=== PATIENT | female | born 1985 | race Hispanic/Latino ===

== ENCOUNTER 2019-04-04 09:28 | Outpatient (CLI) | payer MEDICARE, MEDICAID ==
[2019-04-04 10:22] LABS: Hematocrit 41.6 % (30.3-42.9); Hemoglobin 14.1 gm/dl (10.1-14.3); Mean Corpuscular HGB Conc 34 % (30-34); Mean Corpuscular Volume 97 fl (79-97); Platelet Count 223 K/mm3 (140-440); Red Blood Count 4.29 M/mm3 (3.65-5.03); Red Cell Distribution Width 12.8 % (13.2-15.2)
[2019-04-04 10:55] LABS: Alanine Aminotransferase 16 units/L (7-56); Albumin 4.3 g/dL (3.9-5); BUN/Creatinine Ratio 17; Blood Urea Nitrogen 10 mg/dL (7-17); Calcium 9.2 mg/dL (8.4-10.2); Chol/HDL Ratio 2.37 %; HDL Cholesterol 62 mg/dL (40-59); Hemolysis Index 5; LDL Cholesterol,Direct 77 mg/dL (50-130)
[2019-04-04] MEDS ORDERED: ALBUTEROL 2.5 MG/3 ML NEBU IH ONE (11:34)
[2019-04-10 22:00] LABS: ANA Screen, IFA Positive (Negative)
--- NOTE | 2019-04-15 06:43 | Pulmonary Function Test ---
SPIROMETRY: FVC 2.5 liters, which is 77% of the predicted. FEV1 is 2.09 liters, which is 77% of the predicted. FEV1/FVC ratio is 84. FLOW VOLUME LOOP: FEF 25-75% is 2.13 liters per second, which is 69% of the predicted. MVV is 70% of the predicted. LUNG VOLUMES: TLC 3.75 liters, which is 85% of the predicted. Slow vital capacity (SVC) 2.46 liters, which is 85% of predicted. ERV is 41% of the predicted. DLCO 116% of the predicted. IMPRESSION: Normal pulmonary function test. JOB# [id number] JOSE/MESHA
== END 2019-04-04 09:29 | disposition home or self-care (01) ==
LOC: PF 09:28
PROVIDERS: ATTEND Internal Medicine
DX: J45.909 Unspecified asthma, uncomplicated (principal); K21.9 Gastro-esophageal reflux disease without esophagitis; G43.909 Migraine, unspecified, not intractable, without status migrainosus; E84.9 Cystic fibrosis, unspecified; D84.9 Immunodeficiency, unspecified
CPT/HCPCS: 36415; 80053; 80061; 82784; 82785; 84436; 84443; 85027; 86038; 86431; 93005; 93010; 94060; 94640; 94726; 94729

== ENCOUNTER 2019-05-19 23:22 | Emergency (ER) | payer MEDICARE ==
[2019-05-20 00:11] LABS: Basophils % (Auto) 0.6 % (0.0-1.8); Eosinophils # (Auto) 0.3 K/mm3 (0.0-0.4); Eosinophils % (Auto) 3.6 % (0.0-4.3); Hematocrit 44.2 % (30.3-42.9); Lymphocytes # (Auto) 1.9 K/mm3 (1.2-5.4); Lymphocytes % (Auto) 26.5 % (13.4-35.0); Mean Corpuscular HGB Conc 34 % (30-34); Mean Corpuscular Volume 97 fl (79-97); Monocytes # (Auto) 0.6 K/mm3 (0.0-0.8); Platelet Count 212 K/mm3 (140-440); Red Blood Count 4.58 M/mm3 (3.65-5.03); Red Cell Distribution Width 14.3 % (13.2-15.2)
[2019-05-20 00:23] LABS: BUN/Creatinine Ratio 7; Blood Urea Nitrogen 5 mg/dL (7-17); Calcium 8.9 mg/dL (8.4-10.2); Hemolysis Index 24
--- NOTE | 2019-05-20 00:48 | XRay Report ---
CHEST 1 VIEW INDICATION: MAIN: Chest Pain Coughing up blood, chestpain, and NATHAN X 3 days. COMPARISON: FINDINGS: SUPPORT DEVICES: None. HEART / MEDIASTINUM: No significant abnormality. LUNGS / PLEURA: No significant pulmonary or pleural abnormality. No pneumothorax. ADDITIONAL FINDINGS: IMPRESSION: 1. No acute cardiopulmonary disease Signer Name: Kenan Rocha MD Signed: 05/20/2019 12:44 AM Workstation Name: [id number]
[2019-05-20] MEDS ORDERED: ONDANSETRON 4 MG/2 ML INJ IV ONE (01:14)
[2019-05-20] MEDS ORDERED: fentaNYL 100 MCG/2 ML INJ IV ONE (01:14)
--- NOTE | 2019-05-20 01:23 | Emergency Department Report ---
HPI - General Chief Complaint: Dyspnea/Respdistress Time Seen by Provider: 05/20/19 01:05 - [facility] HPI: Room 26 The patient is a 33-year-old female present with a chief complaint of cough and hemoptysis. Patient states she has a history of cystic fibrosis and coughs frequently. The patient states 3 days ago she noticed specks of blood mixed in with her yellow-green sputum. Today the patient states she she noticed more blood after coughing. Patient denies fever but states she has occasional rhinorrhea whenever she vomits. Patient complains of pain in her back and chest. Patient states she completed a course of antibiotics 2 weeks ago for bronchitis ED Past Medical Hx - Past Medical History Previous Medical History?: Yes Hx Seizures: Yes Additional medical history: Crohn's disease, Cystic Fibrosis, LUPUS. - Surgical History Past Surgical History?: No - Family History Family history: no significant - Social History Smoking Status: Current Every Day Smoker (3 cigarettes daily) Substance Use Type: Alcohol (Moderate), Marijuana - Medications Home Medications: Home Medications Medication Instructions Recorded Confirmed Last Taken Type HYDROcodone/APAP 5-325 [[place] 1 - 2 each PO Q6HR PRN #10 tablet 05/20/19 Unknown Rx 5/325] Promethazine [Phenergan] 25 mg PO Q6HR PRN #20 tab 05/20/19 Unknown Rx Promethazine [Phenergan] 25 mg [place] Q6HR PRN #5 supp.rect 05/20/19 Unknown Rx levoFLOXacin [Levaquin] 750 mg PO QDAY #10 tablet 05/20/19 Unknown Rx ED Review of Systems ROS: Stated complaint: CYSTIC FIBROSIS COMPLICATION Other details as noted in HPI Constitutional: denies: fever Eyes: denies: eye pain ENT: denies: throat pain Respiratory: cough Endocrine: no symptoms reported Gastrointestinal: nausea, vomiting Musculoskeletal: back pain Physical Exam - Physical Exam Vital Signs: Vital Signs 05/19/19 05/19/19 23:30 23:31 Temperature 97.8 F 97.8 F Pulse Rate 80 Respiratory 20 Rate Blood Pressure 162/103 O2 Sat by Pulse 100 Oximetry Physical Exam: GENERAL: The patient is well-developed well-nourished female lying on stretcher not appearing to be in acute distress. [] HEENT: Normocephalic. Atraumatic. Extraocular motions are intact. Patient has moist mucous membranes. NECK: Supple. Trachea midline CHEST/LUNGS: Clear to auscultation. There is no respiratory distress noted. HEART/CARDIOVASCULAR: Regular. There is no tachycardia. There is no gallop rub or murmur. ABDOMEN: Abdomen is soft, nontender. Patient has normal bowel sounds. There is no abdominal distention. SKIN: There is no rash. There is no edema. There is no diaphoresis. NEUROLOGICAL: Patient is alert and oriented. Patient is cooperative. Normal speech. GCS 15 MUSCULOSKELETAL: There is no evidence of acute injury. ED Course Vital Signs 05/19/19 05/19/19 23:30 23:31 Temperature 97.8 F 97.8 F Pulse Rate 80 Respiratory 20 Rate Blood Pressure 162/103 O2 Sat by Pulse 100 Oximetry ED Medical Decision Making - Lab Data Result diagrams: 05/19/19 23:43 05/19/19 23:43 Laboratory Tests 05/19/19 05/19/19 05/20/19 23:43 23:43 01:18 WBC 7.0 RBC 4.58 Hgb 15.0 H Hct 44.2 H MCV 97 MCH 33 H MCHC 34 RDW 14.3 Plt Count 212 Lymph % (Auto) 26.5 [place] % (Auto) 8.0 H Eos % (Auto) 3.6 Baso % (Auto) 0.6 Lymph # 1.9 [place] # 0.6 Eos # 0.3 Baso # 0.0 Seg Neutrophils % 61.3 Seg Neutrophils # 4.3 D-Dimer 152.63 Sodium 138 Potassium 4.2 Chloride 104.1 Carbon Dioxide 19 L Anion Gap 19 BUN 5 L Creatinine 0.7 Estimated GFR > 60 BUN/Creatinine Ratio 7 Glucose 101 H Calcium 8.9 Troponin T < 0.010 - EKG Data -: EKG Interpreted by Me EKG shows normal: sinus rhythm Rate: normal - EKG Data When compared to previous EKG there are: previous EKG unavailable Interpretation: other (No ischemic changes seen) - Radiology Data Radiology results: report reviewed (Chest x-ray), image reviewed (Chest x-ray) interpreted by me: Chest x-ray-no focal infiltrates, no pneumothorax [facility] [address] [place] [address] XRay Report Signed Patient: JAMES PUGH MR#: [id number] : 1985 Acct:[id number] Age/Sex: 33 / F ADM Date: 05/19/19 Loc: ED Attending Dr: Ordering Physician: TASIA GRUBBS MD Date of Service: 05/19/19 Procedure(s): XR chest 1V ap Accession Number(s): [id number] cc: ED MD ROMIE Fluoro Time In Minutes: CHEST 1 VIEW INDICATION: MAIN: Chest Pain Coughing up blood, chestpain, and NATHAN X 3 days. COMPARISON: FINDINGS: SUPPORT DEVICES: None. HEART / MEDIASTINUM: No significant abnormality. LUNGS / PLEURA: No significant pulmonary or pleural abnormality. No pneumothorax. ADDITIONAL FINDINGS: IMPRESSION: 1. No acute cardiopulmonary disease Signer Name: Kenan Rocha MD Signed: 05/20/2019 12:44 AM Workstation Name: [email or web address] Transcribed By: REMINGTON Dictated By: Kenan flannery MD Electronically Authenticated By: Kenan Rocha MD Signed Date/Time: 05/20/1944 DD/ TD/TT: - Differential Diagnosis Bronchitis, pneumonia, PE, tuberculosis Critical care attestation.: If time is entered above; I have spent that time in minutes in the direct care of this critically ill patient, excluding procedure time. ED Disposition Clinical Impression: Acute bronchitis Disposition: - TO HOME OR SELFCARE Is pt being admited?: No Does the pt Need Aspirin: No Condition: Stable Instructions: Acute Bronchitis (ED) Prescriptions: levoFLOXacin [Levaquin] 750 mg PO QDAY #10 tablet HYDROcodone/APAP 5-325 [[place] 5/325] 1 - 2 each PO Q6HR PRN #10 tablet PRN Reason: Pain Promethazine [Phenergan] 25 mg PO Q6HR PRN #20 tab PRN Reason: Nausea Promethazine [Phenergan] 25 mg RI Q6HR PRN #5 supp.rect PRN Reason: Vomiting Referrals: PRIMARY CARE, [Referring] - 3-5 Days FREEMAN CRAWFORD MD [Staff Physician] - [facility] Time of Disposition: 01:55
[2019-05-20 02:32] VITALS: BP 155/83
== END 2019-05-20 02:32 | disposition home or self-care (01) ==
LOC: ED 23:22
DX: J20.9 Acute bronchitis, unspecified (principal); F17.200 Nicotine dependence, unspecified, uncomplicated; F12.90 Cannabis use, unspecified, uncomplicated; Z88.6 Allergy status to analgesic agent; Z91.041 Radiographic dye allergy status; Z79.899 Other long term (current) drug therapy; Z86.69 Personal history of other diseases of the nervous system and sense organs
CPT/HCPCS: 36415; 71045; 80048; 84484; 84703; 85025; 85379; 93005; 93010; 96374; 96375; 99284; J2405; J3010

== ENCOUNTER 2019-06-18 16:47 | Inpatient (IN) | payer MEDICARE ==
--- NOTE | 2019-06-18 17:08 | Event Note ---
ED Screening Note Date of service: 06/18/19 Time: 17:05 ED Screening Note: 33 y/o female comes in for worsening SOB. History of Lupus, CF. Was seen here on 06/14/19 for same complaint. Ox 92 on RA 97% on 2 liters. This initial assessment/diagnostic orders/clinical plan/treatment(s) is/are sub ject to change based on patients health status, clinical progression and re- assessment by fellow clinical providers in the ED. Further treatment and workup at subsequent clinical providers discretion. Patient/guardian urged not to elope from the ED as their condition may be serious if not clinically assessed and managed. Initial orders include: CXR, CBC, CMP COVID-19 orders.
[2019-06-18 17:33] LABS: Basophils % (Auto) 0.7 % (0.0-1.8); Eosinophils # (Auto) 0.1 K/mm3 (0.0-0.4); Eosinophils % (Auto) 2.2 % (0.0-4.3); Lymphocytes % (Auto) 18.9 % (13.4-35.0); Mean Corpuscular HGB Conc 34 % (30-34); Mean Corpuscular Volume 96 fl (79-97); Monocytes # (Auto) 0.4 K/mm3 (0.0-0.8); Monocytes % (Auto) 7.9 % (0.0-7.3); Platelet Count 177 K/mm3 (140-440); Red Blood Count 3.97 M/mm3 (3.65-5.03)
[2019-06-18 18:00] LABS: C-Reactive Protein 0.4 mg/dL (0.00-1.30)
[2019-06-18 18:10] LABS: Alanine Aminotransferase 17 units/L (7-56); Albumin 4.5 g/dL (3.9-5); BUN/Creatinine Ratio 10; Blood Urea Nitrogen 7 mg/dL (7-17); Calcium 9.1 mg/dL (8.4-10.2); Hemolysis Index 10
--- NOTE | 2019-06-18 18:19 | Emergency Department Report ---
HPI - General Chief Complaint: Dyspnea/Respdistress Time Seen by Provider: 06/18/19 17:04 - HPI HPI: 33-year-old female presents to the emergency department from home with a complaint of continued shortness of breath, productive cough, back and rib pain. The patient is well-known to me as I saw her 4 days ago on 06/14/2019. She is known to be Covid positive and found out on 06/14/2019. 5 to 6 days prior to that she was in [facility] at a facility with similar symptoms and was tested at that time. She has a past medical history of cystic fibrosis, lupus, Crohn's disease, epilepsy. The patient was discharged from our facility a few days ago, however the patient claims that she did not receive the prescriptions for the albuterol inhaler or the Plaquenil. Her structurer is Dr. Woo. Patient was tested for and found negative for both influenza and rapid strep during her last visit. ED Past Medical Hx - Past Medical History Previous Medical History?: Yes Hx Headaches / Migraines: Yes Hx Seizures: Yes Additional medical history: Crohn's disease, Cystic Fibrosis, LUPUS.MRSA. - Surgical History Past Surgical History?: Yes Hx Cholecystectomy: Yes Hx Appendectomy: Yes Additional Surgical History: Left hip. Sinus. Bilateral breast reduction. - Social History Smoking Status: Current Every Day Smoker Substance Use Type: None - Medications Home Medications: Home Medications Medication Instructions Recorded Confirmed Last Taken Type HYDROcodone/APAP 5-325 [[place] 1 - 2 each PO Q6HR PRN #10 tablet 05/20/19 Unknown Rx 5/325] Promethazine [Phenergan] 25 mg PO Q6HR PRN #20 tab 05/20/19 Unknown Rx Promethazine [Phenergan] 25 mg [place] Q6HR PRN #5 supp.rect 05/20/19 Unknown Rx levoFLOXacin [Levaquin] 750 mg PO QDAY #10 tablet 05/20/19 Unknown Rx Albuterol INH(or & Nicu Only) 2 puff IH QID PRN #1 inhalation 05/26/19 Unknown Rx [ProAir HFA Inhaler] predniSONE [Deltasone] 20 mg PO QDAY #5 tab 05/26/19 Unknown Rx traMADoL [Ultram] 50 mg PO Q6HR PRN #12 tablet 05/26/19 Unknown Rx Albuterol INH(or & Nicu Only) 2 puff IH QID PRN #1 inh 06/14/19 Unknown Rx [ProAir HFA Inhaler] Hydroxychloroquine [Plaquenil] 200 mg PO QDAY #12 tablet 06/14/19 Unknown Rx Ondansetron [Zofran Odt] 4 mg PO Q8HR PRN #12 tab.rapdis 06/14/19 Unknown Rx ED Review of Systems ROS: Stated complaint: POSS COVID/SOB/CP Other details as noted in HPI Comment: All other systems reviewed and negative Constitutional: chills, fever (intermittent) Eyes: denies: eye pain, vision change ENT: throat pain. denies: ear pain Respiratory: cough, shortness of breath Cardiovascular: denies: palpitations, edema Gastrointestinal: denies: abdominal pain, vomiting Genitourinary: denies: dysuria, discharge Musculoskeletal: back pain, myalgia Skin: denies: rash, lesions Neurological: denies: weakness, numbness Physical Exam - Physical Exam Vital Signs: Vital Signs 06/18/19 06/18/19 17:02 17:03 Temperature 98.1 F Pulse Rate 96 H Respiratory 26 H Rate Blood Pressure 156/98 [Right] O2 Sat by Pulse 97 92 Oximetry Physical Exam: GENERAL: The patient is well-developed well-nourished. HENT: Normocephalic. Atraumatic. Patient has moist mucous membranes. EYES: Extraocular motions are intact. NECK: Supple. Trachea is midline. CHEST/LUNGS: Clear to auscultation. There is some tachypnea but no accessory m uscle use. A productive sounding cough heard during examination. There is no respiratory distress noted. HEART/CARDIOVASCULAR: Regular. There is no tachycardia. There is no murmur. ABDOMEN: Abdomen is soft, nontender. Patient has normal bowel sounds. SKIN: Skin is warm and dry. NEURO: The patient is awake, alert, and oriented. The patient is cooperative. The patient has no focal neurologic deficits. Normal speech. MUSCULOSKELETAL: There is no tenderness or deformity. There is no evidence of acute injury. ED Course Vital Signs 06/18/19 06/18/19 17:02 17:03 Temperature 98.1 F Pulse Rate 96 H Respiratory 26 H Rate Blood Pressure 156/98 [Right] O2 Sat by Pulse 97 92 Oximetry ED Medical Decision Making - Lab Data Result diagrams: 06/18/19 17:18 06/18/19 17:18 - Radiology Data Radiology results: image reviewed interpreted by me: Chest x-ray does not show any acute process. There are no pleural effusions, obvious pneumonia and there is no pneumothorax. - Medical Decision Making This patient returns to the emergency department with worsening shortness of breath and cough, as well as some body aches. She is known Covid 19+ and has the comorbidities of cystic fibrosis and lupus. The last time the patient was here we were able to discharge home as she did not have any signs of hypoxia. However, this time the patient is 92% on room air through triage. Placed on nasal cannula. Chest x-ray does not show any signs of pneumonia. Patient's labs are mostly unremarkable except for some signs of mild dehydration. Given some gentle IV fluid resuscitation. Patient will be admitted to the hospital for further evaluation and treatment and was accepted for admission by the hospitalist, Dr. Osorio. Critical Care Time: No Critical care attestation.: If time is entered above; I have spent that time in minutes in the direct care of this critically ill patient, excluding procedure time. ED Disposition Clinical Impression: COVID-19 virus infection, History of cystic fibrosis, Hypoxia Hypertension Qualifiers: Hypertension type: essential hypertension Qualified Code(s): I10 - Essential (primary) hypertension Dyspnea Qualifiers: Dyspnea type: shortness of breath Qualified Code(s): R06.02 - Shortness of breath; R06.00 - Dyspnea, unspecified; R06.01 - Orthopnea Disposition: OP ADMIT IP TO THIS HOSP Is pt being admited?: Yes Condition: Fair Time of Disposition: 18:35
[2019-06-18] MEDS ORDERED: HYDROmorphone 1 MG/1 ML INJ IV ONE (18:26)
--- NOTE | 2019-06-18 18:28 | XRay Report ---
CHEST 1 VIEW INDICATION: SOB. COMPARISON: 06/14/2019 FINDINGS: Support devices: None. Heart: Normal. Lungs/Pleura: No acute pulmonary or pleural findings. IMPRESSION: 1. No significant change. Signer Name: Jf Traylor MD Signed: 06/18/2019 6:24 PM Workstation Name: [id number]
[2019-06-18] MEDS ORDERED: SODIUM CHLORIDE 0.9% 1000 ML 1,000 ML IV ONE (18:38)
[2019-06-18] MEDS ORDERED: PROMETHAZINE 25 MG RECT SUPP PR PRN (21:56)
[2019-06-18] MEDS ORDERED: ALBUTEROL 8.5 GM INHALATION IH PRN (21:56)
[2019-06-18] MEDS ORDERED: METOCLOPRAMIDE 10 MG/2 ML INJ IV PRN (21:59)
[2019-06-18] MEDS ORDERED: ACETAMINOPHEN 325 MG TAB PO PRN (21:59)
[2019-06-18] MEDS ORDERED: ONDANSETRON 4 MG/2 ML INJ IV PRN (21:59)
--- NOTE | 2019-06-18 22:09 | History and Physical Report ---
History of Present Illness Date of examination: 06/18/19 Date of admission: 06/18/19 18:35 Chief complaint: Cough and SOB for 1 week History of present illness: 33-year-old female presents to the emergency department from home with a complaint of continued shortness of breath, productive cough, back and rib pain. The patient was seen 4 days ago on 06/14/2019 in this facility by ED .. She is known to be Covid positive and found out on 06/14/2019. 5 to 6 days prior to that she was in [facility] at a facility with similar symptoms and was tested at that time. She has a past medical history of cystic fibrosis, lupus, Crohn's disease, epilepsy. The patient was discharged from our facility a few days ago, however the patient claims that she did not receive the prescriptions for the albuterol inhaler or the Plaquenil. Her parenting skills instructor is Dr. Roblero. Patient was tested for and found negative for both influenza and rapid strep during her last visit. Past Medical History Previous Medical History?: Yes Headaches / Migraines: Yes Seizures: Yes Additional medical history: Crohn's disease, Cystic Fibrosis, LUPUS.MRSA. Surgical History Past Surgical History?: Yes Cholecystectomy: Yes Appendectomy: Yes Additional Surgical History: Left hip. Sinus. Bilateral breast reduction. Social History Smoking Status: Current Every Day Smoker Substance Use Type: None Family History Htn - Medications Home Medications: Home Medications Medication Instructions Recorded Confirmed Last Taken Type HYDROcodone/APAP 5-325 [[place] 1 - 2 each PO Q6HR PRN #10 tablet 05/20/19 Unknown Rx 5/325] Promethazine [Phenergan] 25 mg PO Q6HR PRN #20 tab 05/20/19 Unknown Rx Promethazine [Phenergan] 25 mg [place] Q6HR PRN #5 supp.rect 05/20/19 Unknown Rx levoFLOXacin [Levaquin] 750 mg PO QDAY #10 tablet 05/20/19 Unknown Rx Albuterol INH(or & Nicu Only) 2 puff IH QID PRN #1 inhalation 05/26/19 Unknown Rx [ProAir HFA Inhaler] predniSONE [Deltasone] 20 mg PO QDAY #5 tab 05/26/19 Unknown Rx traMADoL [Ultram] 50 mg PO Q6HR PRN #12 tablet 05/26/19 Unknown Rx Albuterol INH(or & Nicu Only) 2 puff IH QID PRN #1 inh 06/14/19 Unknown Rx [ProAir HFA Inhaler] Hydroxychloroquine [Plaquenil] 200 mg PO QDAY #12 tablet 06/14/19 Unknown Rx Ondansetron [Zofran Odt] 4 mg PO Q8HR PRN #12 tab.rapdis 06/14/19 Unknown Rx Review of Systems ROS: Stated complaint: POSS COVID/SOB/CP Other details as noted in HPI Comment: All other systems reviewed and negative Constitutional: chills, fever (intermittent) Eyes: denies: eye pain, vision change ENT: throat pain. denies: ear pain Respiratory: cough, shortness of breath Cardiovascular: denies: palpitations, edema Gastrointestinal: denies: abdominal pain, vomiting Genitourinary: denies: dysuria, discharge Musculoskeletal: back pain, myalgia Skin: denies: rash, lesions Neurological: denies: weakness, numbness PUI?: Yes COVID19: Pending Medications and Allergies Allergies Allergy/AdvReac Type Severity Reaction Status Date / Time aspirin Allergy Anaphylaxis Verified 06/18/19 21:41 iodine Allergy Hives Verified 06/18/19 21:41 red dye Allergy Hives Verified 06/18/19 21:41 Home Medications Medication Instructions Recorded Confirmed Last Taken Type HYDROcodone/APAP 5-325 [[place] 1 - 2 each PO Q6HR PRN #10 tablet 05/20/19 06/18/19 Unknown Rx 5/325] Promethazine [Phenergan] 25 mg PO Q6HR PRN #20 tab 05/20/19 06/18/19 Unknown Rx Promethazine [Phenergan] 25 mg [place] Q6HR PRN #5 supp.rect 05/20/19 06/18/19 Unknown Rx levoFLOXacin [Levaquin] 750 mg PO QDAY #10 tablet 05/20/19 06/18/19 Unknown Rx Albuterol INH(or & Nicu Only) 2 puff IH QID PRN #1 inhalation 05/26/19 06/18/19 Unknown Rx [ProAir HFA Inhaler] predniSONE [Deltasone] 20 mg PO QDAY #5 tab 05/26/19 06/18/19 Unknown Rx traMADoL [Ultram] 50 mg PO Q6HR PRN #12 tablet 05/26/19 06/18/19 Unknown Rx Albuterol INH(or & Nicu Only) 2 puff IH QID PRN #1 inh 06/14/19 06/18/19 Unknown Rx [ProAir HFA Inhaler] Hydroxychloroquine [Plaquenil] 200 mg PO QDAY #12 tablet 06/14/19 06/18/19 Unknown Rx Ondansetron [Zofran Odt] 4 mg PO Q8HR PRN #12 tab.rapdis 06/14/19 06/18/19 Unknown Rx Active Meds: Active Medications Acetaminophen (Tylenol) 650 mg PO Q4H PRN PRN Reason: Pain MILD(1-3)/Fever >100.5/LAIRD Acetaminophen/Hydrocodone Bitart ([place] 5/325) 1 each PO Q6HR PRN PRN Reason: PAIN Albuterol (Proair) 2 puff IH QID PRN PRN Reason: Shortness Of Breath Hydroxychloroquine Sulfate (Plaquenil) 400 mg PO Q12H MONTRELL Stop: 06/19/19 11:01 Hydroxychloroquine Sulfate (Plaquenil) 200 mg PO Q12H MONTRELL Stop: 06/22/19 11:01 Sodium Chloride (Nacl 0.9% 1000 Ml) 1,000 mls @ 125 mls/hr IV ONCE ONE Stop: 06/19/19 02:37 Last Admin: 06/18/19 19:30 Dose: 125 mls/hr Documented by: Metoclopramide HCl (Reglan) 10 mg IV Q6H PRN PRN Reason: Nausea And Vomiting Ondansetron HCl (Zofran) 4 mg IV Q3H PRN PRN Reason: Nausea And Vomiting Promethazine HCl (Phenergan) 25 mg PO Q6HR PRN PRN Reason: Nausea Promethazine HCl (Phenergan) 25 mg [place] Q6HR PRN PRN Reason: Vomiting Sodium Chloride (Sodium Chloride Flush Syringe 10 Ml) 10 ml IV BID MONTRELL Sodium Chloride (Sodium Chloride Flush Syringe 10 Ml) 10 ml IV PRN PRN PRN Reason: LINE FLUSH Tramadol HCl (Ultram) 50 mg PO Q6HR PRN PRN Reason: PAIN Exam - Constitutional Vitals: Temp Pulse Resp BP Pulse Ox 99.4 F 87 25 H 157/86 97 06/18/19 19:30 06/18/19 20:15 06/18/19 20:15 06/18/19 20:01 06/18/19 22:00 General appearance: Present: mild distress, well-nourished - EENT Eyes: Present: PERRL ENT: hearing intact, clear oral mucosa - Neck Neck: Present: supple, normal ROM - Respiratory Respiratory effort: normal Respiratory: bilateral: CTA, rhonchi (Scattered) - Cardiovascular Heart rate: 88 Rhythm: regular Heart Sounds: Present: S1 & S2. Absent: rub, click - Extremities Extremities: pulses symmetrical, No edema Peripheral Pulses: within normal limits - Abdominal General gastrointestinal: Present: soft, non-tender, non-distended, normal bowel sounds Female genitourinary: Present: normal - Rectal Rectal Exam: deferred - Integumentary Integumentary: Present: clear, warm, dry - Musculoskeletal Musculoskeletal: gait normal, strength equal bilaterally - Psychiatric Psychiatric: appropriate mood/affect, intact judgment & insight - Neurologic Neurologic: CNII-XII intact, moves all extremities - Allied Health Allied health notes reviewed: nursing, case management Results - Labs CBC & Chem 7: 06/18/19 17:18 06/18/19 17:18 Labs: Laboratory Last Values WBC 5.5 K/mm3 (4.5-11.0) 06/18/19 17:18 RBC 3.97 M/mm3 (3.65-5.03) 06/18/19 17:18 Hgb 13.0 gm/dl (10.1-14.3) 06/18/19 17:18 Hct 38.0 % (30.3-42.9) 06/18/19 17:18 MCV 96 fl (79-97) 06/18/19 17:18 MCH 33 pg (28-32) H 06/18/19 17:18 MCHC 34 % (30-34) 06/18/19 17:18 RDW 15.0 % (13.2-15.2) 06/18/19 17:18 Plt Count 177 K/mm3 (140-440) 06/18/19 17:18 Lymph % (Auto) 18.9 % (13.4-35.0) 06/18/19 17:18 [place] % (Auto) 7.9 % (0.0-7.3) H 06/18/19 17:18 Eos % (Auto) 2.2 % (0.0-4.3) 06/18/19 17:18 Baso % (Auto) 0.7 % (0.0-1.8) 06/18/19 17:18 Lymph # 1.0 K/mm3 (1.2-5.4) L 06/18/19 17:18 [place] # 0.4 K/mm3 (0.0-0.8) 06/18/19 17:18 Eos # 0.1 K/mm3 (0.0-0.4) 06/18/19 17:18 Baso # 0.0 K/mm3 (0.0-0.1) 06/18/19 17:18 Seg Neutrophils % 70.3 % (40.0-70.0) H 06/18/19 17:18 Seg Neutrophils # 3.9 K/mm3 (1.8-7.7) 06/18/19 17:18 Sodium 139 mmol/L (137-145) 06/18/19 17:18 Potassium 3.9 mmol/L (3.6-5.0) 06/18/19 17:18 Chloride 108.3 mmol/L (98-107) H 06/18/19 17:18 Carbon Dioxide 15 mmol/L (22-30) L 06/18/19 17:18 Anion Gap 20 mmol/L 06/18/19 17:18 BUN 7 mg/dL (7-17) 06/18/19 17:18 Creatinine 0.7 mg/dL (0.7-1.2) 06/18/19 17:18 Estimated GFR > 60 ml/min 06/18/19 17:18 BUN/Creatinine Ratio 10 % 06/18/19 17:18 Glucose 85 mg/dL (65-100) 06/18/19 17:18 Calcium 9.1 mg/dL (8.4-10.2) D 06/18/19 17:18 Ferritin 47.0 ng/mL (13.0-400.0) 06/18/19 17:18 Total Bilirubin 0.50 mg/dL (0.1-1.2) 06/18/19 17:18 AST 22 units/L (5-40) 06/18/19 17:18 ALT 17 units/L (7-56) 06/18/19 17:18 Alkaline Phosphatase 129 units/L (35-129) 06/18/19 17:18 Lactate Dehydrogenase 197 units/L (91-180) H 06/18/19 17:18 C-Reactive Protein 0.40 mg/dL (0.00-1.30) 06/18/19 17:18 Total Protein 7.2 g/dL (6.3-8.2) 06/18/19 17:18 Albumin 4.5 g/dL (3.9-5) 06/18/19 17:18 Albumin/Globulin Ratio 1.7 % 06/18/19 17:18 Microbiology: Microbiology 06/18/19 18:58 Peripheral/Venous Blood Culture - Preliminary Culture in Progress 06/18/19 18:57 Peripheral/Venous Blood Culture - Preliminary Culture in Progress - Imaging and Cardiology EKG: report reviewed Chest x-ray: report reviewed (NAF) [place]/IV: Voiding Method Toilet IV Catheter Type [Right INT / Saline Lock Forearm] Assessment and Plan Advance Directives: Yes (Full code) VTE prophylaxis?: Chemical Plan of care discussed with patient/family: Yes - Patient Problems (1) Acute respiratory failure with hypoxia Current Visit: Yes Status: Acute Plan to address problem: 92 percent on RA. Desaturating to 88 on exertion. Hence admission for O2 supplementation and high flow o2 if necessary Patient is positive for cOVID from [facility] as of 06/14/2019. Inflammatory markers are not that high (2) COVID-19 virus infection Current Visit: Yes Status: Acute Plan to address problem: Covid test sent again No official report from patient Inflammatory markers near normal tom Ferritin and CRP .LDH 197 Procalcitonin normal IV ceftriaxone and Hydroxychloroquine per protocol (3) Hypertension Current Visit: Yes Status: Acute Qualifiers: Hypertension type: essential hypertension Qualified Code(s): I10 - Essential (primary) hypertension Plan to address problem: Cont antihypertensives (4) History of cystic fibrosis Current Visit: Yes Status: Chronic Plan to address problem: Tx per Dr Mart her parenting skills instructor (5) DVT prophylaxis Current Visit: Yes Status: Acute Plan to address problem: On Lovenox and GI prophylaxis
[2019-06-18] MEDS: HYDROXYCHLOROQUINE 200 MG TAB PO SCH (23:13)
[2019-06-18] MEDS: HYDROcodone/ACETAMINOPHEN 5-325 MG TAB PO PRN (23:14)
[2019-06-19] MEDS: traMADol 50 MG TAB PO PRN ×2 (01:49→16:09)
[2019-06-19 05:39] LABS: Basophils % (Auto) 0.5 % (0.0-1.8); Eosinophils # (Auto) 0.1 K/mm3 (0.0-0.4); Eosinophils % (Auto) 2.6 % (0.0-4.3); Hematocrit 35.1 % (30.3-42.9); Hemoglobin 11.9 gm/dl (10.1-14.3); Lymphocytes # (Auto) 1.3 K/mm3 (1.2-5.4); Lymphocytes % (Auto) 37.1 % (13.4-35.0); Mean Corpuscular HGB Conc 34 % (30-34); Mean Corpuscular Volume 97 fl (79-97); Monocytes # (Auto) 0.3 K/mm3 (0.0-0.8); Monocytes % (Auto) 9.8 % (0.0-7.3); Platelet Count 145 K/mm3 (140-440); Red Blood Count 3.63 M/mm3 (3.65-5.03); Red Cell Distribution Width 14.5 % (13.2-15.2)
[2019-06-19 06:31] LABS: Alanine Aminotransferase 13 units/L (7-56); Albumin 3.6 g/dL (3.9-5); BUN/Creatinine Ratio 10; Blood Urea Nitrogen 7 mg/dL (7-17); Calcium 8.1 mg/dL (8.4-10.2); Hemolysis Index 5
--- NOTE | 2019-06-19 07:24 | Progress Note ---
Assessment and Plan Assessment and plan: 33-year-old female with hx cystic fibrosis, lupus, Crohn's disease, epilepsy recent diagnosis of COVID19 presents to the emergency department from home with a complaint of continued shortness of breath, productive cough, back and rib pain. The patient was seen 4 days ago on 06/14/2019 in this facility by ED .. She is known to be Covid positive and found out on 06/14/2019. 5 to 6 days prior to that she was in [facility] at a facility with similar symptoms and was tested at that time. Following Discharge from the ED she however the patient claims that she did not receive the prescriptions for the albuterol inhaler or the Plaquenil. Her technology teacher is Dr. Roblero. Patient was tested for and found negative for both influenza and rapid strep during her last visit. Acute Respiratory Failure Cough Generalized body pain mainly Back and Rib- Costochondritis Lukopenia Lupus COVID19 Viral Infection Metabolic Acidosis Epilepsy Cystitis Fibrosis Chronic pain Marijuana use disorder Crohns Disease HTN Plan Continue supportive care HTN Anti-tussinex Pain control Plaquenil ID and Pulmonary Consult DVT/GI prophy Anticipate discharge in a.m. Extensive counseling about pain control patient verbalized understanding we will also check pre-and post ambulatory pulse ox. History Interval history: Patient seen and examined reports history of home O2 use prior to becoming homeless and as a result lost the oxygen. Also reports multiple medical conditi ons including chronic pain management. She self describes herself as a marijuana user to combat her pain. PUI?: Yes COVID19: Positive Hospitalist Physical - Physical exam Narrative exam: VITAL SIGNS: Reviewed. GENERAL: The patient appears normally developed, Vital signs as documented. HEAD: No signs of head trauma. EYES: Pupils are equal. Extraocular motions intact. EARS: Hearing grossly intact. MOUTH: Oropharynx is normal. NECK: No adenopathy, no JVD. CHEST: Chest with bilateral inspiratory and expiratory wheeze breath sounds . No rales, or rhonchi. CARDIAC: Regular rate and rhythm. S1 and S2, without murmurs, gallops, or rubs. VASCULAR: No Edema. Peripheral pulses normal and equal in all extremities. ABDOMEN: Soft, non tender and non distended. No rebound or guarding, and no masses palpated. Bowel Sounds normal. MUSCULOSKELETAL: Good range of motion of all major joints. Extremities without clubbing, cyanosis or edema. NEUROLOGIC EXAM: Alert and oriented x 3 No focal sensory or strength deficits. Speech normal. Follows commands. PSYCHIATRIC: Mood normal. SKIN: detial exam as documented in skin assessment - Constitutional Vitals: Temp Pulse Resp BP Pulse Ox 97.8 F 73 20 119/73 96 06/19/19 05:03 06/19/19 05:03 06/19/19 05:03 06/19/19 05:03 06/19/19 05:03 General appearance: Present: mild distress, well-nourished Results - Labs CBC & Chem 7: 06/19/19 04:49 06/19/19 04:49 Labs: Laboratory Last Values WBC 3.6 K/mm3 (4.5-11.0) L 06/19/19 04:49 RBC 3.63 M/mm3 (3.65-5.03) L 06/19/19 04:49 Hgb 11.9 gm/dl (10.1-14.3) 06/19/19 04:49 Hct 35.1 % (30.3-42.9) 06/19/19 04:49 MCV 97 fl (79-97) 06/19/19 04:49 MCH 33 pg (28-32) H 06/19/19 04:49 MCHC 34 % (30-34) 06/19/19 04:49 RDW 14.5 % (13.2-15.2) 06/19/19 04:49 Plt Count 145 K/mm3 (140-440) 06/19/19 04:49 Lymph % (Auto) 37.1 % (13.4-35.0) H 06/19/19 04:49 [place] % (Auto) 9.8 % (0.0-7.3) H 06/19/19 04:49 Eos % (Auto) 2.6 % (0.0-4.3) 06/19/19 04:49 Baso % (Auto) 0.5 % (0.0-1.8) 06/19/19 04:49 Lymph # 1.3 K/mm3 (1.2-5.4) 06/19/19 04:49 [place] # 0.3 K/mm3 (0.0-0.8) 06/19/19 04:49 Eos # 0.1 K/mm3 (0.0-0.4) 06/19/19 04:49 Baso # 0.0 K/mm3 (0.0-0.1) 06/19/19 04:49 Seg Neutrophils % 50.0 % (40.0-70.0) 06/19/19 04:49 Seg Neutrophils # 1.8 K/mm3 (1.8-7.7) 06/19/19 04:49 Sodium 141 mmol/L (137-145) 06/19/19 04:49 Potassium 3.7 mmol/L (3.6-5.0) 06/19/19 04:49 Chloride 109.6 mmol/L (98-107) H 06/19/19 04:49 Carbon Dioxide 17 mmol/L (22-30) L 06/19/19 04:49 Anion Gap 18 mmol/L 06/19/19 04:49 BUN 7 mg/dL (7-17) 06/19/19 04:49 Creatinine 0.7 mg/dL (0.7-1.2) 06/19/19 04:49 Estimated GFR > 60 ml/min 06/19/19 04:49 BUN/Creatinine Ratio 10 % 06/19/19 04:49 Glucose 99 mg/dL (65-100) 06/19/19 04:49 Calcium 8.1 mg/dL (8.4-10.2) L 06/19/19 04:49 Ferritin 47.0 ng/mL (13.0-400.0) 06/18/19 17:18 Total Bilirubin 0.60 mg/dL (0.1-1.2) 06/19/19 04:49 AST 18 units/L (5-40) 06/19/19 04:49 ALT 13 units/L (7-56) 06/19/19 04:49 Alkaline Phosphatase 108 units/L (35-129) 06/19/19 04:49 Lactate Dehydrogenase 197 units/L (91-180) H 06/18/19 17:18 C-Reactive Protein 0.40 mg/dL (0.00-1.30) 06/18/19 17:18 Total Protein 6.1 g/dL (6.3-8.2) L 06/19/19 04:49 Albumin 3.6 g/dL (3.9-5) L 06/19/19 04:49 Albumin/Globulin Ratio 1.4 % 06/19/19 04:49 Microbiology: Microbiology 06/18/19 18:58 Peripheral/Venous Blood Culture - Preliminary Culture in Progress 06/18/19 18:57 Peripheral/Venous Blood Culture - Preliminary Culture in Progress [place]/IV: Voiding Method Toilet IV Catheter Type [Right INT / Saline Lock Forearm] Active Medications - Current Medications Current Medications: Generic Name Dose Route Start Last Admin Trade Name Freq PRN Reason Stop Dose Admin Acetaminophen 650 mg 06/18/19 21:59 Tylenol PO Q4H PRN Pain MILD(1-3)/Fever >100.5/LAIRD Acetaminophen/Hydrocodone Bitart 1 each 06/18/19 21:56 06/18/19 23:14 [place] 5/325 PO 1 each Q6HR PRN Administration PAIN Albuterol 2 puff 06/18/19 21:56 06/19/19 01:42 Proair IH 2 puff QID PRN Administration Shortness Of Breath Enoxaparin Sodium 40 mg 06/19/19 22:00 Enoxaparin SUB-Q QDAY@2200 [facility] Hydroxychloroquine Sulfate 400 mg 06/18/19 23:00 06/18/19 23:13 Plaquenil PO 06/19/19 11:01 400 mg Q12H [facility] Administration Hydroxychloroquine Sulfate 200 mg 06/19/19 23:00 Plaquenil PO 06/23/19 11:01 Q12H [facility] Metoclopramide HCl 10 mg 06/18/19 21:59 Reglan IV Q6H PRN Nausea And Vomiting Ondansetron HCl 4 mg 06/18/19 21:59 Zofran IV Q3H PRN Nausea And Vomiting Promethazine HCl 25 mg 06/18/19 21:56 Phenergan PO Q6HR PRN Nausea Promethazine HCl 25 mg 06/18/19 21:56 Phenergan PA Q6HR PRN Vomiting Sodium Chloride 10 ml 06/18/19 22:00 06/18/19 23:15 Sodium Chloride Flush Syringe 10 Ml IV 10 ml BID [facility] Administration Sodium Chloride 10 ml 06/18/19 21:59 Sodium Chloride Flush Syringe 10 Ml IV PRN PRN LINE FLUSH Tramadol HCl 50 mg 06/18/19 21:56 06/19/19 01:49 Ultram PO 50 mg Q6HR PRN Administration PAIN
[2019-06-19] MEDS ORDERED: ALBUTEROL 2.5 MG/3 ML NEBU IH PRN (07:31)
[2019-06-19] MEDS ORDERED: SODIUM BICARB 8.4% 50 MEQ/50 ML SYRINGE IV ONE (07:45)
[2019-06-19] MEDS: HYDROcodone/ACETAMINOPHEN 5-325 MG TAB PO PRN ×2 (08:34→20:10)
[2019-06-19] MEDS ORDERED: ONDANSETRON 4 MG ODT TAB PO PRN (08:40)
[2019-06-19] MEDS: LACOSAMIDE 100 MG TAB PO SCH ×2 (09:09→21:54)
[2019-06-19] MEDS: APIXABAN 5 MG TAB PO SCH ×2 (09:09→21:54)
[2019-06-19] MEDS: PROMETHAZINE 25 MG TAB PO PRN ×2 (09:09→20:10)
[2019-06-19] MEDS ORDERED: NON-FORMULARY EACH (Lacosamide [Vimpat] 200 MG) PO SCH (10:00)
[2019-06-19] MEDS ORDERED: GABAPENTIN 400 MG CAP PO SCH ×2 (10:00→22:00)
[2019-06-19] MEDS ORDERED: TOPIRAMATE 50 MG PO SCH (10:00)
[2019-06-19] MEDS ORDERED: GABAPENTIN 1200 MG PO SCH ×2 (10:00→18:00)
[2019-06-19] MEDS: IPRATROPIUM/ALBUTEROL SULFATE 3 ML AMPUL.NEB IH SCH ×2 (10:09→17:47)
[2019-06-19] MEDS: ALBUTEROL 8.5 GM INHALATION IH SCH ×3 (10:09→19:50)
[2019-06-19] MEDS: ESCITALOPRAM 10 MG TAB PO SCH ×2 (10:12→10:15)
[2019-06-19] MEDS: HYDROXYCHLOROQUINE 200 MG TAB PO SCH ×2 (10:15→21:55)
[2019-06-19] MEDS: TOPIRAMATE TAB 25 MG TAB PO SCH ×2 (10:15→21:55)
[2019-06-19] MEDS ORDERED: LIPASE PO SCH (11:30)
[2019-06-19] MEDS ORDERED: AMYLASE PO SCH (11:30)
[2019-06-19] MEDS ORDERED: PROTEASE PO SCH (11:30)
[2019-06-19] MEDS: HYDROmorphone 1 MG/1 ML INJ IV PRN ×2 (12:37→18:35)
[2019-06-19] MEDS: LIPASE 12,000/PROTEASE 38,000/AMYLASE 60,000 (UNITS) DR CAP PO SCH ×2 (12:51→16:52)
--- NOTE | 2019-06-19 14:12 | Consultation ---
History of Present Illness - Reason for Consult Consult date: 06/19/19 COVID-19 Requesting physician: JOSELIN SHEETS?: Yes COVID19: Positive - History of Present Illness The patient is a 33-year-old female with Crohn's disease, cystic fibrosis, lupus was admitted to the hospital today with complaints of shortness of breath, cough. Patient is known to be COVID-19 positive from a test done at [facility]. Now admitted with ongoing cough and shortness of breath. ID consulted for COVID- 19. She is afebrile. On oxygen. Review of Systems: reviewed in the chart, unable to obtain directly due to PPE shortage and preservation Medications and Allergies Allergies Allergy/AdvReac Type Severity Reaction Status Date / Time aspirin Allergy Anaphylaxis Verified 06/18/19 21:41 iodine Allergy Hives Verified 06/18/19 21:41 red dye Allergy Hives Verified 06/18/19 21:41 Home Medications Medication Instructions Recorded Confirmed Last Taken Type HYDROcodone/APAP 5-325 [[place] 1 - 2 each PO Q6HR PRN #10 tablet 05/20/19 06/18/19 Unknown Rx 5/325] Promethazine [Phenergan] 25 mg PO Q6HR PRN #20 tab 05/20/19 06/18/19 Unknown Rx Promethazine [Phenergan] [address] Q6HR PRN #5 supp.rect 05/20/19 06/18/19 Unknown Rx levoFLOXacin [Levaquin] 750 mg PO QDAY #10 tablet 05/20/19 06/18/19 Unknown Rx Albuterol INH(or & Nicu Only) 2 puff IH QID PRN #1 inhalation 05/26/19 06/18/19 Unknown Rx [ProAir HFA Inhaler] predniSONE [Deltasone] 20 mg PO QDAY #5 tab 05/26/19 06/18/19 Unknown Rx traMADoL [Ultram] 50 mg PO Q6HR PRN #12 tablet 05/26/19 06/18/19 Unknown Rx Albuterol INH(or & Nicu Only) 2 puff IH QID PRN #1 inh 06/14/19 06/18/19 Unknown Rx [ProAir HFA Inhaler] Hydroxychloroquine [Plaquenil] 200 mg PO QDAY #12 tablet 06/14/19 06/18/19 Unknown Rx Ondansetron [Zofran Odt] 4 mg PO Q8HR PRN #12 tab.rapdis 06/14/19 06/18/19 Unknown Rx Apixaban [Eliquis] 5 mg PO BID 06/19/19 06/19/19 Unknown History Escitalopram [Lexapro] 20 mg PO DAILY 06/19/19 06/19/19 Unknown History Gabapentin [Neurontin] 1,200 mg PO QAM 06/19/19 06/19/19 Unknown History Gabapentin [Neurontin] 1,200 mg PO QPM 06/19/19 06/19/19 Unknown History Gabapentin [Neurontin] 800 mg PO DAILY 06/19/19 06/19/19 Unknown History Lacosamide [Vimpat] 200 mg PO BID 06/19/19 06/19/19 Unknown History Lipase/Protease/Amylase [Gerardo Raphael 8 each PO AC 06/19/19 06/19/19 Unknown History 24,000 Units Capsule] Montelukast [Singulair] 10 mg PO QPM 06/19/19 06/19/19 Unknown History Topiramate [Topamax] 50 mg PO BID 06/19/19 06/19/19 Unknown History Active Meds: Active Medications Acetaminophen (Tylenol) 650 mg PO Q4H PRN PRN Reason: Pain MILD(1-3)/Fever >100.5/LAIRD Acetaminophen/Hydrocodone Bitart ([place] 5/325) 1 each PO Q6HR PRN PRN Reason: Pain , Severe (7-10) Last Admin: 06/19/19 08:34 Dose: 1 each Documented by: Albuterol (Proair) 2 puff IH Q6HRT [facility] Last Admin: 06/19/19 10:09 Dose: Not Given Documented by: Albuterol/Ipratropium (Duoneb *Not For Prn Use*) 1 ampul IH Q6HRT [facility] Last Admin: 06/19/19 10:09 Dose: Not Given Documented by: Lipase/Protease/Amylase (Gerardo Raphael 12,000 Units) 16 each PO AC [facility] Last Admin: 06/19/19 12:51 Dose: 16 each Documented by: Apixaban (Eliquis) 5 mg PO BID [facility]; Protocol Last Admin: 06/19/19 09:09 Dose: 5 mg Documented by: Escitalopram Oxalate (Lexapro) 20 mg PO DAILY [facility] Last Admin: 06/19/19 10:15 Dose: 20 mg Documented by: Gabapentin (Gabapentin) 1,200 mg PO QHS [facility] Gabapentin (Gabapentin) 800 mg PO DAILY@1200 [facility] Gabapentin (Gabapentin) 1,200 mg PO QAM@0730 [facility] Hydromorphone HCl (Dilaudid) 0.5 mg IV Q6H PRN PRN Reason: Pain , Severe (7-10) Last Admin: 06/19/19 12:37 Dose: 0.5 mg Documented by: Hydroxychloroquine Sulfate (Plaquenil) 200 mg PO BID [facility] Stop: 06/23/19 10:01 Lacosamide (Vimpat) 200 mg PO Q12HR [facility] Last Admin: 06/19/19 09:09 Dose: 200 mg Documented by: Metoclopramide HCl (Reglan) 10 mg IV Q6H PRN PRN Reason: Nausea And Vomiting Montelukast Sodium (Singulair) 10 mg PO QPM [facility] Ondansetron HCl (Zofran) 4 mg IV Q3H PRN PRN Reason: Nausea And Vomiting Ondansetron HCl (Zofran Odt) 4 mg PO Q8HR PRN PRN Reason: Nausea/V Promethazine HCl (Phenergan) 25 mg PO Q6HR PRN PRN Reason: Nausea And Vomiting Last Admin: 06/19/19 09:09 Dose: 25 mg Documented by: Promethazine HCl (Phenergan) [address] Q6HR PRN PRN Reason: Nausea And Vomiting Sodium Chloride (Sodium Chloride Flush Syringe 10 Ml) 10 ml IV BID [facility] Last Admin: 06/19/19 09:10 Dose: 10 ml Documented by: Sodium Chloride (Sodium Chloride Flush Syringe 10 Ml) 10 ml IV PRN PRN PRN Reason: LINE FLUSH Topiramate (Topamax) 50 mg PO Q12HR [facility] Last Admin: 06/19/19 10:15 Dose: 50 mg Documented by: Tramadol HCl (Ultram) 50 mg PO Q6HR PRN PRN Reason: Pain, Moderate (4-6) Last Admin: 06/19/19 01:49 Dose: 50 mg Documented by: Physical Examination - Physical Exam Narrative exam: Physical Exam (reviewed in chart due to PPE conservation) Constitutional: limited due to PPE conservation strategy Head, Ears, Nose: limited due to PPE conservation strategy Eyes: limited due to PPE conservation strategy Neck: limited due to PPE conservation strategy Oral: limited due to PPE conservation strategy Cardiovascular: limited due to PPE conservation strategy Respiratory: limited due to PPE conservation strategy GI: limited due to PPE conservation strategy Musculoskeletal: limited due to PPE conservation strategy Skin: limited due to PPE conservation strategy Hem/Lymphatic: limited due to PPE conservation strategy Psych: limited due to PPE conservation strategy Neurological: limited due to PPE conservation strategy - Constitutional Vitals: Vital Signs Temp Pulse Resp BP Pulse Ox 98.2 F 71 20 111/61 98 06/19/19 11:40 06/19/19 11:40 06/19/19 11:40 06/19/19 11:40 06/19/19 12:05 Temperature -Last 24 Hours Temperature 98.2 F Temperature 97.8 F Temperature 98.3 F Temperature 99.4 F Temperature 98.1 F Results - Labs CBC & Chem 7: 06/19/19 04:49 06/19/19 04:49 Labs: Abnormal lab results 06/18/19 06/18/19 06/18/19 Range/Units 17:18 17:18 17:18 WBC (4.5-11.0) K/mm3 RBC (3.65-5.03) M/mm3 MCH 33 H (28-32) pg Lymph % (Auto) (13.4-35.0) % [place] % (Auto) 7.9 H (0.0-7.3) % Lymph # 1.0 L (1.2-5.4) K/mm3 Seg Neutrophils % 70.3 H (40.0-70.0) % Chloride 108.3 H (98-107) mmol/L Carbon Dioxide 15 L (22-30) mmol/L Calcium (8.4-10.2) mg/dL Lactate Dehydrogenase 197 H (91-180) units/L Total Protein (6.3-8.2) g/dL Albumin (3.9-5) g/dL 06/19/19 06/19/19 Range/Units 04:49 04:49 WBC 3.6 L (4.5-11.0) K/mm3 RBC 3.63 L (3.65-5.03) M/mm3 MCH 33 H (28-32) pg Lymph % (Auto) 37.1 H (13.4-35.0) % [place] % (Auto) 9.8 H (0.0-7.3) % Lymph # (1.2-5.4) K/mm3 Seg Neutrophils % (40.0-70.0) % Chloride 109.6 H (98-107) mmol/L Carbon Dioxide 17 L (22-30) mmol/L Calcium 8.1 L (8.4-10.2) mg/dL Lactate Dehydrogenase (91-180) units/L Total Protein 6.1 L (6.3-8.2) g/dL Albumin 3.6 L (3.9-5) g/dL - Imaging and Cardiology Chest x-ray: report reviewed, image reviewed (no infiltrate seen) Assessment and Plan Cultures: 06/18/2019 blood culture: In process A/P: 33-year-old female with Crohn's disease, cystic fibrosis, lupus was admitted to the hospital today with complaints of shortness of breath, cough. Patient is known to be COVID-19 positive from a test done at [facility]: #COVID-19: Tested positive outside. Inflammatory markers not significantly positive. #Acute respiratory failure: On oxygen Recs: Chest x-ray does not show any lobar infiltrates, procalcitonin is low, acute bacterial infection is not suspected. Ceftriaxone discontinued Agree with Plaquenil x total 5 days Ok for steroids if warranted from pulmonary standpoint (bronchospasm, wheeze, etc.) trend ferritin, LDH, d-dimer, CRP every 2-3 days for risk stratification and to assess disease progression Katherine Disla MD, FACP [facility] C: [phone] O: [phone] F: [phone]
[2019-06-19] MEDS: GABAPENTIN 400 MG CAP PO SCH (14:16)
--- NOTE | 2019-06-19 14:46 | Consultation ---
History of Present Illness Consult date: 06/19/19 Requesting physician: JOSELIN UPTON Reason for consult: other (COVID-19 infection; Cystic Fibrosis) History of present illness: PCCM CONSULT NOTE (Full dictation # [id number]) Please see dictated notes for full details Medications and Allergies Allergies Allergy/AdvReac Type Severity Reaction Status Date / Time aspirin Allergy Anaphylaxis Verified 06/18/19 21:41 iodine Allergy Hives Verified 06/18/19 21:41 red dye Allergy Hives Verified 06/18/19 21:41 Home Medications Medication Instructions Recorded Confirmed Last Taken Type HYDROcodone/APAP 5-325 [[place] 1 - 2 each PO Q6HR PRN #10 tablet 05/20/19 0 06/18/19 Unknown Rx 5/325] Promethazine [Phenergan] 25 mg PO Q6HR PRN #20 tab 05/20/19 06/18/19 Unknown Rx Promethazine [Phenergan] 25 mg [place] Q6HR PRN #5 supp.rect 05/20/19 06/18/19 Unknown Rx levoFLOXacin [Levaquin] 750 mg PO QDAY #10 tablet 05/20/19 06/18/19 Unknown Rx Albuterol INH(or & Nicu Only) 2 puff IH QID PRN #1 inhalation 05/26/19 06/18/19 Unknown Rx [ProAir HFA Inhaler] predniSONE [Deltasone] 20 mg PO QDAY #5 tab 05/26/19 06/18/19 Unknown Rx traMADoL [Ultram] 50 mg PO Q6HR PRN #12 tablet 05/26/19 06/18/19 Unknown Rx Albuterol INH(or & Nicu Only) 2 puff IH QID PRN #1 inh 06/14/19 06/18/19 Unknown Rx [ProAir HFA Inhaler] Hydroxychloroquine [Plaquenil] 200 mg PO QDAY #12 tablet 06/14/19 06/18/19 Unknown Rx Ondansetron [Zofran Odt] 4 mg PO Q8HR PRN #12 tab.rapdis 06/14/19 06/18/19 Unknown Rx Apixaban [Eliquis] 5 mg PO BID 06/19/19 06/19/19 Unknown History Escitalopram [Lexapro] 20 mg PO DAILY 06/19/19 06/19/19 Unknown History Gabapentin [Neurontin] 1,200 mg PO QAM 06/19/19 06/19/19 Unknown History Gabapentin [Neurontin] 1,200 mg PO QPM 06/19/19 06/19/19 Unknown History Gabapentin [Neurontin] 800 mg PO DAILY 06/19/19 06/19/19 Unknown History Lacosamide [Vimpat] 200 mg PO BID 06/19/19 06/19/19 Unknown History Lipase/Protease/Amylase [Gerardo Raphael 8 each PO AC 06/19/19 06/19/19 Unknown History 24,000 Units Capsule] Montelukast [Singulair] 10 mg PO QPM 06/19/19 06/19/19 Unknown History Topiramate [Topamax] 50 mg PO BID 06/19/19 06/19/19 Unknown History Active Meds: Active Medications Acetaminophen (Tylenol) 650 mg PO Q4H PRN PRN Reason: Pain MILD(1-3)/Fever >100.5/LAIRD Acetaminophen/Hydrocodone Bitart ([place] 5/325) 1 each PO Q6HR PRN PRN Reason: Pain , Severe (7-10) Last Admin: 06/19/19 08:34 Dose: 1 each Documented by: Albuterol (Proair) 2 puff IH Q6HRT [facility] Last Admin: 06/19/19 10:09 Dose: Not Given Documented by: Albuterol/Ipratropium (Duoneb *Not For Prn Use*) 1 ampul IH Q6HRT [facility] Last Admin: 06/19/19 10:09 Dose: Not Given Documented by: Lipase/Protease/Amylase (Gerardo Raphael 12,000 Units) 16 each PO AC [facility] Last Admin: 06/19/19 12:51 Dose: 16 each Documented by: Apixaban (Eliquis) 5 mg PO BID [facility]; Protocol Last Admin: 06/19/19 09:09 Dose: 5 mg Documented by: Escitalopram Oxalate (Lexapro) 20 mg PO DAILY [facility] Last Admin: 06/19/19 10:15 Dose: 20 mg Documented by: Gabapentin (Gabapentin) 1,200 mg PO QHS [facility] Gabapentin (Gabapentin) 800 mg PO DAILY@1200 [facility] Last Admin: 06/19/19 14:16 Dose: 800 mg Documented by: Gabapentin (Gabapentin) 1,200 mg PO QAM@0730 [facility] Hydromorphone HCl (Dilaudid) 0.5 mg IV Q6H PRN PRN Reason: Pain , Severe (7-10) Last Admin: 06/19/19 12:37 Dose: 0.5 mg Documented by: Hydroxychloroquine Sulfate (Plaquenil) 200 mg PO BID [facility] Stop: 06/23/19 10:01 Lacosamide (Vimpat) 200 mg PO Q12HR [facility] Last Admin: 06/19/19 09:09 Dose: 200 mg Documented by: Metoclopramide HCl (Reglan) 10 mg IV Q6H PRN PRN Reason: Nausea And Vomiting Montelukast Sodium (Singulair) 10 mg PO QPM [facility] Ondansetron HCl (Zofran) 4 mg IV Q3H PRN PRN Reason: Nausea And Vomiting Ondansetron HCl (Zofran Odt) 4 mg PO Q8HR PRN PRN Reason: Nausea/V Promethazine HCl (Phenergan) 25 mg PO Q6HR PRN PRN Reason: Nausea And Vomiting Last Admin: 06/19/19 09:09 Dose: 25 mg Documented by: Promethazine HCl (Phenergan) 25 mg [place] Q6HR PRN PRN Reason: Nausea And Vomiting Sodium Chloride (Sodium Chloride Flush Syringe 10 Ml) 10 ml IV BID [facility] Last Admin: 06/19/19 09:10 Dose: 10 ml Documented by: Sodium Chloride (Sodium Chloride Flush Syringe 10 Ml) 10 ml IV PRN PRN PRN Reason: LINE FLUSH Topiramate (Topamax) 50 mg PO Q12HR [facility] Last Admin: 06/19/19 10:15 Dose: 50 mg Documented by: Tramadol HCl (Ultram) 50 mg PO Q6HR PRN PRN Reason: Pain, Moderate (4-6) Last Admin: 06/19/19 01:49 Dose: 50 mg Documented by: Physical Examination Vital signs: Vital Signs Temp Pulse Resp BP Pulse Ox 98.1 F 96 H 26 H 156/98 97 06/18/19 17:02 06/18/19 17:02 06/18/19 17:02 06/18/19 17:02 06/18/19 17:02 Results - Laboratory Findings CBC and BMP: 06/19/19 04:49 06/19/19 04:49 Abnormal lab findings: Abnormal Labs 06/18/19 06/18/19 06/18/19 17:18 17:18 17:18 WBC RBC MCH 33 H Lymph % (Auto) [place] % (Auto) 7.9 H Lymph # 1.0 L Seg Neutrophils % 70.3 H Chloride 108.3 H Carbon Dioxide 15 L Calcium Lactate Dehydrogenase 197 H Total Protein Albumin 06/19/19 06/19/19 04:49 04:49 WBC 3.6 L RBC 3.63 L MCH 33 H Lymph % (Auto) 37.1 H [place] % (Auto) 9.8 H Lymph # Seg Neutrophils % Chloride 109.6 H Carbon Dioxide 17 L Calcium 8.1 L Lactate Dehydrogenase Total Protein 6.1 L Albumin 3.6 L
[2019-06-19] MEDS ORDERED: MONTELUKAST 10 MG TAB PO SCH (18:00)
[2019-06-19] MEDS ORDERED: ENOXAPARIN 40 MG/0.4 ML INJ SUB-Q SCH (22:00)
[2019-06-20] MEDS: HYDROmorphone 1 MG/1 ML INJ IV PRN ×3 (00:42→13:27)
[2019-06-20] MEDS: ALBUTEROL 8.5 GM INHALATION IH SCH ×2 (02:06→10:41)
--- NOTE | 2019-06-20 02:32 | Consultation ---
PULMONARY CONSULTATION CONSULTING PHYSICIAN: Dr. Osorio. REASON FOR CONSULTATION: COVID-19 positive, cystic fibrosis. CHIEF COMPLAINT AND HISTORY OF PRESENT ILLNESS: The patient is a 33-year-old female with past medical history significant amongst other things for a diagnosis of cystic fibrosis and other autoimmune diseases to include Crohn's and lupus, came into the Emergency Room complaining of continued shortness of breath and productive cough. No hemoptysis. Back pain, rib pain worse than her baseline. She found out on 06/14/2019 that she was COVID positive. She had been seen earlier than that about 06/09/2019 at the [facility] in [place], [place] with similar symptoms she was tested and then she got the call on 06/14/2019. She came into the Emergency Room because she was unable to go see her textile technologist in the outpatient setting. In the Emergency Room, she was evaluated. She was negative for influenza. Rapid Strep test was also negative. She was admitted to the medical floor as essentially exacerbation of cystic fibrosis and to further evaluate her for the COVID-19 infection. We are asked to assist with management. When I stopped by to see her, she was resting in bed. Again, denied any gross or streaky hemoptysis. Denied any fevers or chills. Denied nausea, vomiting, or overt aspiration. With regards to tobacco use/abuse history, she admits to about a 5+ pack year tobacco smoking history. This really is as much of the history of presentation as I have. PAST MEDICAL HISTORY: Again, significant for cystic fibrosis, Crohn's disease, systemic lupus erythematosus, history of migraines, history of seizures. She is obese. PAST SURGICAL HISTORY: She has had a cholecystectomy. She has had an appendectomy. She has had left hip surgery. She has had sinus surgery. She has had bilateral breast reductions. MEDICATIONS: She was on at the time I stopped by to see were reviewed. Pertinent medications included the following: She was on Tylenol 650 mg p.o. q. 4 hours p.r.n. mild pain or fevers, Bowie 5/325 one tablet p.o. q. 6 hours p.r.n. severe pain, albuterol MDI treatments 2 puffs inhaled q.6 hours, apixaban 5 mg p.o. b.i.d., Lexapro 20 mg p.o. daily, Neurontin 800 mg p.o. daily as well as 1.2 grams p.o. at bedtime and 1.2 grams q.a.m., so 1.2 grams a.m. and at bedtime and 800 mg in the afternoon. She is also on Dilaudid 0.5 mg IV q. 6 hours p.r.n. severe pain. She is on Plaquenil 200 mg p.o. b.i.d. scheduled, Vimpat 200 mg p.o. q. 12 hours, Reglan 10 mg IV q. 6 hours p.r.n. nausea and vomiting, Singulair 10 mg p.o. at bedtime, Zofran 4 mg IV q. 3 hours p.r.n. nausea and vomiting. Topamax 50 mg p.o. q. 12 hours and Ultram 50 mg p.o. q 6 hours p.r.n. moderate pain. ALLERGIES: ASPIRIN, IODINE AND RED DYE, nature of this allergy is unknown. DIET: Obese lady, morbidly too. Denies acute weight loss or gain in the preceding few weeks to months. FAMILY AND SOCIAL HISTORY: Lives in the community, everyday smoker, 5+ pack year tobacco smoking history. Denies alcohol or illicit drug use or abuse. Family history is otherwise noncontributory. REVIEW OF SYSTEMS: No loss of consciousness. No new onset seizures. No new onset focal weakness. No gross hematochezia or melena. No gross hematuria or dysuria. No hematemesis. No hemoptysis. She complains of some right lower extremity pain that seems like when she last had the DVT. She denies periods of unexplained sadness and/or elation as may be consistent with psychiatric type disorders. Denies polydipsia or polyuria. Complete 13-system review of systems obtained. Pertinent positives and/or negatives as in body of history above, otherwise are noncontributory. PHYSICAL EXAMINATION: VITAL SIGNS: At presentation in the Emergency Room, review of vital signs shows afebrile, temperature 98.1 degrees Fahrenheit, pulse of 96, respiratory rate of 26, blood pressure was 156/98, O2 sats were 97%, inspired oxygen concentration at that time was not recorded. When I stopped by to see her, O2 sats were 98% on 3 liters nasal cannula, which is her baseline oxygen requirement at home. HEAD, EYES, EARS, NOSE, AND THROAT: Anicteric, no conjunctival erythema. Oropharynx was moist. Mallampati #3 oropharynx. No gross jugular venous distention. NECK: Grossly, there were no palpable lymph nodes in the supraclavicular or submandibular lymph node chains. LUNGS: Auscultation of both lung ramesh revealed diminished bilateral breath sounds, prolonged expiratory phase anterior upper chest, expiratory wheezing. HEART: Heart sounds 1 and 2 are heard. They were regular in rate and rhythm at time of my evaluation without overt rubs or murmurs. ABDOMEN: Soft, full, bowel sounds are positive, nontender, no palpable hepatosplenomegaly. She has some mild tenderness to the lower back bilaterally. EXTREMITIES: Without overt digital clubbing or cyanosis and there was no pedal edema. Pedal pulses are 2+ bilaterally. NEUROLOGIC: Pupils are equal, round, about 4 mm, reactive to light. Extraocular muscle movements were intact. She moves all 4 extremities spontaneously. SKIN: Normal turgor without overt cellulitis or rash. PSYCHIATRIC: Her mood was normal. Affect was appropriate. LABORATORY DATA: From my review are as follows: Admission white cell count 5500, hemoglobin 13.2, hematocrit 38.0, and platelet count 177. No manual differential. Serum sodium is 139, potassium 3.9, chloride 108, bicarbonate 15, BUN 7, creatinine 0.7, and glucose 85. Liver function test is within normal limits. LDH was slightly elevated at 197. Procalcitonin unremarkable. CRP level unremarkable. Ferritin within normal limits. Two sets of blood cultures, no growth to date. Chest x-ray was done. I have reviewed the chest x-ray. I have also reviewed the radiologist's interpretation, except for some suggestion of hyperinflation, borderline cardiomegaly taking the hyperinflation in the context also, I agree no acute process. ASSESSMENT: 1. Acute on chronic hypoxemic respiratory failure. 2. COVID-19 infection. 3. Cystic fibrosis by history. 4. History of venous thromboembolic disorder. 5. Morbid obesity. 6. History of Crohn's disease. 7. History of systemic lupus erythematosus. 8. Tobacco use disorder. 9. Seizure disorder. 10. History of migraines. PLAN: Her inflammatory markers are certainly unremarkable thankfully. Hopefully, she is over the acute phase of the COVID-19 infection. With regards to testing to see if she is actually negative, I will defer to Infectious Disease for that. Her Plaquenil seems to be started empirically for COVID. I will defer to Infectious Disease on that. From a respiratory standpoint, oxygenation is at baseline. I do hear some wheezing. We will continue with p.r.n. bronchodilators. I see no acute indication for venous thromboembolic disorder workup. She should continue on her apixaban. No acute indication for empiric antibiotic therapies. She is on full anticoagulation. I will put her on GI prophylaxis. Flu and pneumonia vaccination will be addressed per protocol. Tobacco abstinence has been strongly counseled. She will be seen in the clinic post-discharge for followup. We should continue airborne and contact precautions. Thank you very much for the consult Dr. Osorio. We will follow along and make further recommendations as picture progresses/becomes clearer. JOB# [id number] SAMI/MESHA MELENDEZ
[2019-06-20] MEDS: traMADol 50 MG TAB PO PRN (06:22)
[2019-06-20] MEDS: PROMETHAZINE 25 MG TAB PO PRN (06:22)
[2019-06-20] MEDS ORDERED: GABAPENTIN 400 MG CAP PO SCH (07:30)
[2019-06-20] MEDS: LIPASE 12,000/PROTEASE 38,000/AMYLASE 60,000 (UNITS) DR CAP PO SCH ×2 (08:07→12:03)
--- NOTE | 2019-06-20 08:08 | Discharge Summary ---
Providers - Providers Date of Admission: 06/18/19 18:35 Attending physician: ARABELLA VALERA MD 06/19/19 05:41 Consult to Physician [CONS] Routine Comment: Consulting Provider: MARIXA CONNELL Physician Instructions: Reason For Exam: Covid 19 positive 06/19/19 05:42 Consult to Physician [CONS] Routine Comment: Consulting Provider: FREEMAN CRAWFORD Physician Instructions: Reason For Exam: Cystic Fibrosis ,Covid 19 positive Primary care physician: ELECTRIC POWERLINE EXAMINER Hospitalization Reason for admission: Respiratory failure Condition: Stable Hospital course: 33-year-old female with hx cystic fibrosis, lupus, Crohn's disease, epilepsy recent diagnosis of COVID19 presents to the emergency department from home with a complaint of continued shortness of breath, productive cough, back and rib pain. The patient was seen 4 days ago on 06/14/2019 in this facility by ED .. She is known to be Covid positive and found out on 06/14/2019. 5 to 6 days prior to that she was in [facility] at a facility with similar symptoms and was tested at that time. Following Discharge from the ED she however the patient claims that she did not receive the prescriptions for the albuterol inhaler or the Plaquenil. Her cupola melter is Dr. Roblero. Patient was tested for and found negative for both influenza and rapid strep during her last visit. * Patient was seen by ID * Pulmonary evaluated and recommended continue current management * patients clinical improve this morning with saturation of 95% on room air. And is stable for discharge extensive counseling provided against tobacco and marijuana use. I also recommended outpatient clinical pain management follow- up. * While whenever able to confirm the positivity of the patient's result repeat COVID testing at our facility came back negative. This has been discussed with the patient. When considering the fact that the patient tested positive according to the patient at an outside facility anticipate that she must have completed her treatment. Nevertheless there is also also an underlying pain medication seeking by this patient and preoccupation about pain medication. Acute on chronic Respiratory Failure Cough Generalized body pain mainly Back and Rib- Costochondritis Lukopenia SLE COVID19 Viral Infection Metabolic Acidosis Epilepsy Cystitis Fibrosis Chronic pain Marijuana use disorder Seizure Disorder Crohns Disease HTN Tobacco use disorder Disposition: DC-01 TO HOME OR SELFCARE Time spent for discharge: 35 mins Core Measure Documentation - Palliative Care Palliative Care/ Comfort Measures: Not Applicable - Core Measures Any of the following diagnoses?: none Exam - Physical Exam Narrative exam: VITAL SIGNS: Reviewed. GENERAL: The patient appears normally developed, Vital signs as documented. HEAD: No signs of head trauma. EYES: Pupils are equal. Extraocular motions intact. EARS: Hearing grossly intact. MOUTH: Oropharynx is normal. NECK: No adenopathy, no JVD. CHEST: Chest with bilateral inspiratory and expiratory wheeze breath sounds . No rales, or rhonchi. CARDIAC: Regular rate and rhythm. S1 and S2, without murmurs, gallops, or rubs. VASCULAR: No Edema. Peripheral pulses normal and equal in all extremities. ABDOMEN: Soft, non tender and non distended. No rebound or guarding, and no masses palpated. Bowel Sounds normal. MUSCULOSKELETAL: Good range of motion of all major joints. Extremities without clubbing, cyanosis or edema. NEUROLOGIC EXAM: Alert and oriented x 3 No focal sensory or strength deficits. Speech normal. Follows commands. PSYCHIATRIC: Mood normal. SKIN: detial exam as documented in skin assessment - Constitutional Vitals: Temp Pulse Resp BP Pulse Ox 97.5 F L 77 24 117/82 96 06/20/19 06:27 06/19/19 21:47 06/20/19 06:27 06/20/19 06:27 06/19/19 22:00 Plan Activity: advance as tolerated, fall precautions Diet: low fat Special Instructions: record daily weights, record daily BP diary Follow up with: PRIMARY CARE, [Primary Care Provider] - 3-5 Days Prescriptions: Lipase/Protease/Amylase [Gerardo Raphael 12,000 Units] 16 each PO AC #30 capsule predniSONE [Deltasone] 20 mg PO QDAY #5 tab Apixaban [Eliquis] 5 mg PO BID #30 Escitalopram [Lexapro] 20 mg PO DAILY #30 Famotidine [Pepcid] 20 mg PO QDAY #30 tablet Hydroxychloroquine [Plaquenil] 200 mg PO BID #6 tablet Albuterol INH(or & Nicu Only) [ProAir HFA Inhaler] 2 puff IH QID PRN #1 inhalation PRN Reason: Shortness Of Breath Montelukast [Singulair] 10 mg PO QPM #1 Lacosamide [Vimpat] 200 mg PO Q12HR #60 tablet
[2019-06-20] MEDS: TOPIRAMATE TAB 25 MG TAB PO SCH (09:07)
[2019-06-20] MEDS: LACOSAMIDE 100 MG TAB PO SCH (09:07)
[2019-06-20] MEDS: ESCITALOPRAM 10 MG TAB PO SCH (09:07)
[2019-06-20] MEDS: HYDROXYCHLOROQUINE 200 MG TAB PO SCH (09:07)
[2019-06-20] MEDS: APIXABAN 5 MG TAB PO SCH (09:07)
[2019-06-20] MEDS ORDERED: FAMOTIDINE 20 MG TAB PO SCH (10:00)
[2019-06-20] MEDS: HYDROcodone/ACETAMINOPHEN 5-325 MG TAB PO PRN (12:03)
[2019-06-20] MEDS: GABAPENTIN 400 MG CAP PO SCH (12:03)
--- NOTE | 2019-06-20 12:52 | Progress Note ---
Assessment and Plan Cultures: 06/18/2019 blood culture: negative A/P: 33-year-old female with Crohn's disease, cystic fibrosis, lupus was admitted to the hospital with complaints of shortness of breath, cough. Patient is known to be COVID-19 positive from a test done at [place]: #COVID-19: Tested positive outside. Inflammatory markers not significantly elevated. COVID test here is negative #Acute respiratory failure: On oxygen Recs: Complete total 5 days of Plaquenil. Verify outside COVID test result if possible. Otherwise, prudent to maintain isolation while inpatient Ok for steroids if warranted from pulmonary standpoint (bronchospasm, wheeze, etc.) Inflammatory markers are not elevated. Minimal oxygen requirements. OK for discharge from ID standpoint with home oxygen if needed. Will sign off. Please call with questions. Katherine Disla MD, FACP [facility] ([facility]) C: [phone] O: [phone] F: [phone] Subjective Date of service: 06/20/19 Interval history: No fever. COVID test here came back negative. PUI?: Yes COVID19: Negative Objective - Exam Narrative Exam: Physical Exam (reviewed in chart due to PPE conservation) Constitutional: limited due to PPE conservation strategy Head, Ears, Nose: limited due to PPE conservation strategy Eyes: limited due to PPE conservation strategy Neck: limited due to PPE conservation strategy Oral: limited due to PPE conservation strategy Cardiovascular: limited due to PPE conservation strategy Respiratory: limited due to PPE conservation strategy GI: limited due to PPE conservation strategy Musculoskeletal: limited due to PPE conservation strategy Skin: limited due to PPE conservation strategy Hem/Lymphatic: limited due to PPE conservation strategy Psych: limited due to PPE conservation strategy Neurological: limited due to PPE conservation strategy - Constitutional Vitals: Vital Signs Temp Pulse Resp BP Pulse Ox 97.5 F L 77 18 117/82 100 06/20/19 06:27 06/20/19 10:30 06/20/19 10:30 06/20/19 06:27 06/20/19 09:52 Temperature -Last 24 Hours Temperature 97.5 F Temperature 97.4 F Temperature 97.3 F - Labs CBC & Chem 7: 06/19/19 04:49 06/19/19 04:49
[2019-06-20 13:07] VITALS: BP 126/88
--- NOTE | 2019-06-20 13:32 | Progress Note ---
Assessment and Plan Acute on chronic hypoxemic respiratory failure. COVID-19 infection. Cystic fibrosis by history. History of venous thromboembolic disorder. Morbid obesity. History of Crohn's disease. History of systemic lupus erythematosus. Tobacco use disorder. Seizure disorder. History of migraines - continue to wean supplemental oxygen to keep O2 sats > 90% - continue Bronchodilators with pulm hygiene per RT - avoid nephrotoxins, renally dose all medications - mobility protocols to prevent pressure ulcers - PT/OT as tolerated - accuchecks with glycemic control per SSI for target blood glucose < 180 mg/dL - continued smoking abstinence strongly counseled at the bedside - GI & VTE prophylaxis - prn analgesia per pain score - Flu & pneumovax per protocol - Pulmonary out patient follow up for PFTs and optimization of respiratory status - continue other care per attending / other consultants ... re-evaluate in am & prn Subjective Date of service: 06/20/19 Principal diagnosis: Ac on ch hypoxemic resp failure; COVID-19 infection; Cystic fibrosis; VTE Interval history: Patient is seen today for: Acute on chronic hypoxemic respiratory failure; COVID-19 infection; Cystic fibrosis; VTE; Morbid obesity; SLE Seen and examined at bedside; 24hour events reviewed; nursing and respiratory care staff consulted; no adverse overnight events reported to me; PUI?: Yes COVID19: Negative Objective Vital Signs - 12hr 06/20/19 06/20/19 06/20/19 06:22 06:27 09:52 Temperature 97.5 F L Pulse Rate Pulse Rate [ Posterior Bilateral Throughout] Respiratory 18 24 Rate Respiratory Rate [Posterior Bilateral Throughout] Blood Pressure 117/82 O2 Sat by Pulse 100 Oximetry 06/20/19 06/20/19 10:30 11:52 Temperature 98.3 F Pulse Rate 80 Pulse Rate [ 77 Posterior Bilateral Throughout] Respiratory 20 Rate Respiratory 18 Rate [Posterior Bilateral Throughout] Blood Pressure 126/88 O2 Sat by Pulse 99 Oximetry CBC and BMP: 06/19/19 04:49 06/19/19 04:49 Abnormal lab findings: Abnormal Labs 06/18/19 06/18/19 06/18/19 17:18 17:18 17:18 WBC RBC MCH 33 H Lymph % (Auto) [place] % (Auto) 7.9 H Lymph # 1.0 L Seg Neutrophils % 70.3 H Chloride 108.3 H Carbon Dioxide 15 L Calcium Lactate Dehydrogenase 197 H Total Protein Albumin 06/19/19 06/19/19 04:49 04:49 WBC 3.6 L RBC 3.63 L MCH 33 H Lymph % (Auto) 37.1 H [place] % (Auto) 9.8 H Lymph # Seg Neutrophils % Chloride 109.6 H Carbon Dioxide 17 L Calcium 8.1 L Lactate Dehydrogenase Total Protein 6.1 L Albumin 3.6 L
== END 2019-06-20 15:17 | disposition home or self-care (01) | DRG 189 ==
LOC: ED 16:47 → 3A 18:35
PROVIDERS: ADMIT Internal Medicine; ATTEND Internal Medicine
DX: J96.21 Acute and chronic respiratory failure with hypoxia (principal); E87.2 Acidosis; Z68.41 Body mass index [BMI] 40.0-44.9, adult; K50.90 Crohn's disease, unspecified, without complications; E84.9 Cystic fibrosis, unspecified; M94.0 Chondrocostal junction syndrome [Tietze]; M32.9 Systemic lupus erythematosus, unspecified; E66.01 Morbid (severe) obesity due to excess calories; F17.200 Nicotine dependence, unspecified, uncomplicated; G40.909 Epilepsy, unspecified, not intractable, without status epilepticus; D72.819 Decreased white blood cell count, unspecified; G43.909 Migraine, unspecified, not intractable, without status migrainosus; G89.29 Other chronic pain; F12.90 Cannabis use, unspecified, uncomplicated; Z88.6 Allergy status to analgesic agent; Z91.041 Radiographic dye allergy status; Z79.899 Other long term (current) drug therapy; Z90.49 Acquired absence of other specified parts of digestive tract; Z82.49 Family history of ischemic heart disease and other diseases of the circulatory system; Z03.818 Encounter for observation for suspected exposure to other biological agents ruled out
CPT/HCPCS: 36415; 71045; 80053; 82728; 83615; 84145; 85025; 86140; 87040; 94640; 94760; 99406; G0378; J1170; J7030; Q0169